=== PATIENT | male | born 1935 | race Caucasian/White ===

== ENCOUNTER 2023-02-28 10:47 | Outpatient (CLI) | payer MEDICARE, SELFPAY | END 2023-02-28 10:48 | disposition home or self-care (01) | LOC: LKVREF 10:48 | PROVIDERS: PCP Family Medicine; Visit Provider Family Medicine | DX: Z11.3 Encounter for screening for infections with a predominantly sexual mode of transmission (principal) | CPT/HCPCS: 86592; 86593 ==

== ENCOUNTER 2023-12-05 14:20 | Outpatient (CLI) | payer MEDICARE, SELFPAY | END 2023-12-05 14:21 | disposition home or self-care (01) | PROVIDERS: PCP Family Medicine; Visit Provider Family Medicine | DX: E78.5 Hyperlipidemia, unspecified (principal); I10 Essential (primary) hypertension | CPT/HCPCS: 80053; 80061 ==

== ENCOUNTER 2024-06-16 09:57 | Outpatient (CLI) | payer MEDICARE, SELFPAY | END 2024-06-16 09:58 | disposition home or self-care (01) | PROVIDERS: PCP Family Medicine; Visit Provider Family Medicine | DX: I10 Essential (primary) hypertension (principal); E11.9 Type 2 diabetes mellitus without complications; R63.5 Abnormal weight gain | CPT/HCPCS: 84439; 84681 ==

== ENCOUNTER 2024-11-24 09:12 | Outpatient (CLI) | payer MEDICARE, SELFPAY | END 2024-11-24 09:13 | disposition home or self-care (01) | LOC: LKVREF 09:13 | PROVIDERS: PCP Family Medicine; Visit Provider Family Medicine | DX: E78.5 Hyperlipidemia, unspecified (principal) | CPT/HCPCS: 80061 ==